=== PATIENT | male | born 1930 | race African-American/Black ===

== ENCOUNTER 2018-12-24 18:11 | Emergency (ER) | payer MEDICARE, MEDICAID ==
[~2018-12-24] VITALS: Ht 172.7 cm; Wt 59.0 kg
[2018-12-24 18:15] VITALS: BP 134/87
--- NOTE | 2018-12-24 18:15 | NUR ---
ED Nurse Note: pt brought in by [facility] c/o high blood sugar, crit high per EMS report, pt was at the doctors office and was given 500 units insulin but unable to state which insulin. pt states he takes insulin daily but doesn't know what insulin he takes and how much. pt AA&ox4, gcs=15, skin warm and dry, resp even and unlabored, -n/v/d, ambulates w/ steady gait, noted BLE edema pitting +2, dressing with finger splint on left 3rd4th finger, pt states he had infection from ingroin nail, will cont monitor. vss. ACcucheck at the bedside was crit high, ERMD notified.
--- NOTE | 2018-12-24 19:00 | NUR ---
ED Nurse Note: attempted Iv x3 , unable to get it this time, Pt refused IV, ERMD notified.
--- NOTE | 2018-12-24 19:30 | NUR ---
ED Nurse Note: blood specimen sent.
--- NOTE | 2018-12-24 19:40 | NUR ---
ED Nurse Note: accucheck 314, ermd notified.
[2018-12-24 20:15] VITALS: BP 142/86
[2018-12-24 20:31] LABS: HEMATOCRIT 31.2 % (42.0-52.0); HEMOGLOBIN 10.4 G/DL (14.2-18.0); MEAN CORPUSCULAR VOLUME 94 FL (80-99); PLATELET COUNT 137 K/UL (150-450); RED BLOOD COUNT 3.31 M/UL (4.70-6.10); RED CELL DISTRIBUTION WIDTH 12.5 % (11.6-14.8); WHITE BLOOD COUNT 8.1 K/UL (4.8-10.8)
[2018-12-24 20:32] LABS: BASOPHILS % (AUTO) 0.6 % (0.0-2.0); EOSINOPHILS % (AUTO) 0.4 % (0.0-3.0); LYMPHOCYTES % (AUTO) 9.4 % (20.0-45.0); MONOCYTES % (AUTO) 3.8 % (1.0-10.0); NEUTROPHILS % (AUTO) 85.8 % (45.0-75.0)
[2018-12-24 20:45] LABS: ANION GAP 7 mmol/L (5-15); BLOOD UREA NITROGEN 16 mg/dL (7-18); CALCIUM 9.2 MG/DL (8.5-10.1); CARBON DIOXIDE 24 MMOL/L (21-32); CHLORIDE 100 MMOL/L (98-107); CREATININE 1.5 MG/DL (0.55-1.30); POTASSIUM 5.5 MMOL/L (3.5-5.1); SODIUM 131 MMOL/L (136-145)
[2018-12-24 20:50] LABS: ALANINE AMINOTRANSFERASE 82 U/L (12-78); ALBUMIN/GLOBULIN RATIO 0.7 (1.0-2.7); ALKALINE PHOSPHATASE 76 U/L (46-116); ASPARTATE AMINO TRANSFERASE 59 U/L (15-37); BILIRUBIN,TOTAL 0.6 MG/DL (0.2-1.0)
--- NOTE | 2018-12-24 21:00 | NUR ---
ED Nurse Note: per ERMD order, pt given sandwich and water.
[2018-12-24 22:15] VITALS: BP 138/80
--- NOTE | 2018-12-24 22:23 | Emergency Room Report ---
History of Present Illness General Chief Complaint: Abnormal Labs Source: Patient Present Illness HPI Patient presents emergency department today with hyperglycemia. Patient went to see his primary care physician was noted to have elevated glucose. Patient was given one dose of insulin 15 units and sent to the emergency department for further evaluation. On arrival patient at baseline. He states that he feels fine denies any chest pain shortness breath nausea vomiting diarrhea or chills. No other complaints are noted.No other modifying factors. No other associated signs and symptoms. No other complaints were noted. Allergies: Coded Allergies: PENICILLINS (Unverified Allergy, Intermediate, 12/24/18) Patient History Past Medical History: DM, HTN Past Surgical History: none Pertinent Family History: none Social History: Denies: smoking, alcohol use, drug use Reviewed Nursing Documentation: PMH: Agreed; PSxH: Agreed Nursing Documentation-PMH Hx Hypertension: Yes Hx Diabetes: Yes Hx Cancer: Yes - PANCREAS Review of Systems All Other Systems: negative except mentioned in HPI Physical Exam Vital Signs Date Time Temp Pulse Resp B/P (MAP) Pulse Ox O2 Delivery O2 Flow Rate FiO2 12/24/18 18:01 98.6 77 16 106/70 98 Room Air Sp02 EP Interpretation: reviewed, normal General Appearance: normal inspection, well appearing, no apparent distress, alert Head: atraumatic Eyes: bilateral eye normal inspection ENT: normal ENT inspection, hearing grossly normal, normal voice Neck: normal inspection, full range of motion, supple, no bony tend Respiratory: normal inspection, lungs clear, normal breath sounds, no respiratory distress, no retraction, no wheezing Cardiovascular #1: regular rate, rhythm, no edema Gastrointestinal: normal inspection, normal bowel sounds, non tender, soft, no guarding, no hernia Genitourinary: no CVA tenderness Musculoskeletal: normal inspection, back normal, normal range of motion Neurologic: normal inspection, alert, responsive, speech normal Psychiatric: normal inspection, judgement/insight normal, mood/affect normal Skin: normal inspection, normal color, no rash Medical Decision Making Diagnostic Impression: Primary Impression: Hyperglycemia ER Course Patient presents emergency department today with hyperglycemia. Differential considerations include hyperglycemia, DKA, medication noncompliance just name a few. Patient's exam is fairly benign. Laboratory workup shows patient's glucose was significantly improved. There is no evidence. Patient was given food here. Patient's requesting be discharged. We did offer to admit the patient for monitoring but he declined. Dr. Brian Douglas was notified. Patient will be transported back to long-term via ambulance.Patient is advised to follow up with primary doctor in 2-3 days and return the emergency room for any worsening symptoms and as needed. Labs Test 12/24/18 20:15 White Blood Count 8.1 K/UL (4.8-10.8) Red Blood Count 3.31 M/UL (4.70-6.10) Hemoglobin 10.4 G/DL (14.2-18.0) Hematocrit 31.2 % (42.0-52.0) Mean Corpuscular Volume 94 FL (80-99) Mean Corpuscular Hemoglobin 31.4 PG (27.0-31.0) Mean Corpuscular Hemoglobin Concent 33.3 G/DL (32.0-36.0) Red Cell Distribution Width 12.5 % (11.6-14.8) Platelet Count 137 K/UL (150-450) Mean Platelet Volume 5.6 FL (6.5-10.1) Neutrophils (%) (Auto) 85.8 % (45.0-75.0) Lymphocytes (%) (Auto) 9.4 % (20.0-45.0) Monocytes (%) (Auto) 3.8 % (1.0-10.0) Eosinophils (%) (Auto) 0.4 % (0.0-3.0) Basophils (%) (Auto) 0.6 % (0.0-2.0) Sodium Level 131 MMOL/L (136-145) Potassium Level 5.5 MMOL/L (3.5-5.1) Chloride Level 100 MMOL/L (98-107) Carbon Dioxide Level 24 MMOL/L (21-32) Anion Gap 7 mmol/L (5-15) Blood Urea Nitrogen 16 mg/dL (7-18) Creatinine 1.5 MG/DL (0.55-1.30) Estimat Glomerular Filtration Rate mL/min (>60) Glucose Level 274 MG/DL (74-106) Calcium Level 9.2 MG/DL (8.5-10.1) Total Bilirubin 0.6 MG/DL (0.2-1.0) Aspartate Amino Transf (AST/SGOT) 59 U/L (15-37) Alanine Aminotransferase (ALT/SGPT) 82 U/L (12-78) Alkaline Phosphatase 76 U/L (46-116) Troponin I 0.000 ng/mL (0.000-0.056) Total Protein 7.2 G/DL (6.4-8.2) Albumin 3.0 G/DL (3.4-5.0) Globulin 4.2 g/dL Albumin/Globulin Ratio 0.7 (1.0-2.7) Last Vital Signs Date Time Temp Pulse Resp B/P (MAP) Pulse Ox O2 Delivery O2 Flow Rate FiO2 12/24/18 18:15 98.6 76 16 134/87 98 Room Air Status: improved Disposition: HOME, SELF-CARE Condition: Stable Referrals: [facility],REFERRING (PCP) Patient Instructions: Hyperglycemia Ton Griffin MD Dec 24, 2018 22:23
[2018-12-24 23:27] VITALS: BP 132/67
--- NOTE | 2018-12-24 23:29 | NUR ---
ED Nurse Note: pt cleared to be d/c per ERMD, pt discharge and aftercare instruction provided, pt education done via discussion and handout, pt advised to follow up with pcp or return to ED if sx worsen or new sx develop, ambulance personnel at the bedside, report given and endorsed care, pt transferred to [facility], s, ambulatory w/ steady gait. left w/ all belongings.
== END 2018-12-24 23:32 | disposition home or self-care (01) ==
LOC: EDBD 18:11 → EMR 18:29
DX: E11.65 Type 2 diabetes mellitus with hyperglycemia (principal); I10 Essential (primary) hypertension; Z85.07 Personal history of malignant neoplasm of pancreas
CPT/HCPCS: 36415; 80053; 82962; 84484; 85025; 93005; 99284